=== PATIENT | female | born 1940 | race Caucasian/White ===

== ENCOUNTER 2016-11-03 09:20 | Inpatient (IN) | payer MEDICARE, BC ==
[~2016-11-03] VITALS: Ht 162.6 cm; Wt 58.1 kg
--- NOTE | 2016-11-03 09:52 | PHYS DOC ---
Past Medical History Past Medical History: GERD, Hypertension Past Surgical History: Tonsillectomy, Tubal ligation Additional Information: nonsmoker Alcohol Use: None Drug Use: None Adult General Chief Complaint Chief Complaint: KNEE INJURY HPI HPI Patient is a 76 year old female who presents with right knee pain after tripping and falling at 0745 today. She states that she was in an unfamiliar place and tripped. She landed on her right knee. She denies hitting her head or loss of consciousness. She denies any other injuries. She is ambulatory with a significant limp. Her PCP is Dr. Jose R Riley. Review of Systems Review of Systems Constitutional: Denies fever or chills. [] Musculoskeletal: Denies back pain. Reports right knee pain and swelling. Integument: Denies rash or skin lesions. Reports right knee ecchymosis. Neurologic: Denies headache, focal weakness or sensory changes. Denies loss of consciousness. Current Medications Current Medications Current Medications Medications (Trade) Dose Ordered Sig/Fritz Start Time Stop Time Status Last Admin Dose Admin Morphine Sulfate 4 mg PRN Q15MIN PRN 11/03/16 11:00 11/04/16 10:59 Ondansetron HCl (Zofran) 4 mg PRN Q8HRS PRN 11/03/16 11:00 Allergies Allergies Allergies Coded Allergies Type Severity Reaction Last Updated Verified Sulfa (Sulfonamide Antibiotics) Allergy Mild hives 11/03/16 Yes Physical Exam Physical Exam Constitutional: Well developed, well nourished, no acute distress, non-toxic appearance. [] HENT: Normocephalic, atraumatic, oropharynx moist. [] Eyes: PERRLA, EOMI, conjunctiva normal, no discharge. [] Neck: Normal range of motion, no tenderness, supple, no stridor. [] Skin: Warm, dry, no erythema, no rash. Ecchymosis over the right patella. Back: No midline tenderness, no CVA tenderness. [] Extremities: Right patellar tenderness, ROM decreased due to pain, moderate right patellar edema. Distal pulses equal bilaterally. Neurovascular intact distally. The patient is unable to hold her leg up on the bed, suggesting extensor mechanism involvement. Neurologic: Alert and oriented X 3, normal motor function, normal sensory function, no focal deficits noted. [] Psychologic: Affect normal, judgement normal, mood normal. [] Current Patient Data Vital Signs Vital Signs Date Time Temp Pulse Resp B/P Pulse Ox O2 Delivery O2 Flow Rate FiO2 11/03/16 09:35 97.9 77 18 221/95 98 Room Air 97.9 EKG EKG EKG at 1123. Heart rate 72 bpm. Normal sinus rhythm without any acute ischemic changes or STEMI, as interpreted by Dr. Ribeiro. Radiology/Procedures Radiology/Procedures REASON: trip & fall on knee, patellar tenderness and edema,fall this am per pt. PROCEDURE: KNEE RIGHT 4V 4 view study of the right knee History: Patient fell on right knee this a.m. Pain and swelling and tenderness around the patella. Findings: There is a comminuted fracture of the mid and lower pole of the right patella. There is intra-articular extension. There is inferior distraction of the lower fracture fragment of 6 mm. The patella is normally aligned otherwise. Associated prepatellar soft tissue swelling and posttraumatic bursitis is seen. Swelling of the suprapatellar bursa is seen consistent with a joint effusion. No osteolytic process is seen. IMPRESSION: Post traumatic comminuted fracture of the right patella. Course & Med Decision Making Course & Med Decision Making Pertinent Labs and Imaging studies reviewed. (See chart for details) Patient is a 76-year-old female who presents with mechanical fall onto her right knee. On exam, there is significant edema and ecchymosis over the right patella. She is unable to lift her leg to gravity. I spoke with Dr. Luna with orthopedics. Because the patient has extensor mechanism involvement, she will need to be admitted to the hospital for surgery. I discussed the results with the patient and her . They are in agreement with plan for admission to the hospital. The patient was admitted under the hospitalist service by Dr. Dejesus. Preop labs, EKG, and x-ray were ordered while the patient was in the emergency department. The patient remained stable in the emergency department. Dragon Disclaimer Dragon Disclaimer This electronic medical record was generated, in whole or in part, using a voice recognition dictation system. Departure Departure Impression: Primary Impression: Patella fracture Disposition: ADMITTED INPATIENT Admitting Physician: Ulises Dejesus Condition: STABLE Problem Qualifiers Primary Impression: Patella fracture Encounter type: initial encounter Fracture type: closed Fracture morphology : comminuted Fracture alignment: nondisplaced Laterality: right Qualified Code: S82.044A - Nondisplaced comminuted fracture of right patella, initial encounter for closed fracture SEDRICK AGUILAR Nov 03, 2016 09:52
--- NOTE | 2016-11-03 10:32 | RAD ---
4 view study of the right knee History: Patient fell on right knee this a.m. Pain and swelling and tenderness around the patella. Findings: There is a comminuted fracture of the mid and lower pole of the right patella. There is intra-articular extension. There is inferior distraction of the lower fracture fragment of 6 mm. The patella is normally aligned otherwise. Associated prepatellar soft tissue swelling and posttraumatic bursitis is seen. Swelling of the suprapatellar bursa is seen consistent with a joint effusion. No osteolytic process is seen. IMPRESSION: Post traumatic comminuted fracture of the right patella.
[2016-11-03] MEDS ORDERED: MORPHINE SULFATE 4 MG/ML DISP.SYRIN. IV/SQ PRN (11:00)
[2016-11-03] MEDS ORDERED: ONDANSETRON PF 4 MG/2 ML VIAL. IV PRN ×2 (11:00→11:15)
[2016-11-03] MEDS: IV NORMAL SALINE 1000ML BAG 1,000 ML IV SCH ×2 (11:10→21:27)
--- NOTE | 2016-11-03 11:13 | RAD ---
Portable AP upright view CXR: Clinical indications: Preoperative study. The patient is 76 years old. Comparison: None available. Findings: No acute lung infiltrate or pleural effusion or pulmonary edema or lung mass or pneumothorax is seen. The heart size, pulmonary vasculature, mediastinum and both roger are unremarkable. Impression: No acute radiographic abnormality is seen.
[2016-11-03] MEDS ORDERED: MORPHINE SULFATE 4 MG/ML DISP.SYRIN. IV PRN (11:15)
[2016-11-03] MEDS ORDERED: LOSA100T6 PO (12:43)
[2016-11-03] MEDS ORDERED: RANI150T6 PO (12:43)
--- NOTE | 2016-11-03 14:12 | EKG ---
[facility] [address] [place] [address] Test Date: 2016-11-03 Test Time: 11:23:15 Pat Name: BARB GARCIA Department: Room: [facility] Gender: F Anesthesiology Crna: : 1940 Requested By: SEDRICK AGUILAR Order Number: [id number] Reading MD: Kvng Dao Measurements Intervals [place] Rate: 72 P: 69 MN: 196 QRS: 6 QRSD: 86 T: 72 QT: 392 QTc: 431 Interpretive Statements SINUS RHYTHM Electronically Signed On 11-16-2016 11:56:06 CDT by Kvng Dao
[2016-11-03 15:00] VITALS: BP 141/66
[2016-11-03] MEDS: LOSARTAN POTASSIUM 50 MG TABLET. PO SCH (15:00)
[2016-11-03 15:12] LABS: BASO % 0 % (0-3); EOS % 0 % (0-3); HEMATOCRIT 41.4 % (36.0-47.0); HEMOGLOBIN 13.5 g/dL (12.0-15.5); LYMPH # 0.7 x10^3/uL (1.0-4.8); LYMPH % 9 % (24-48); MEAN CORPUSCULAR HEMOGLOBIN 30 pg (25-35); MEAN CORPUSCULAR HGB CONC 33 g/dL (31-37); MEAN CORPUSCULAR VOLUME 93 fL (79-100); MONO % 3 % (0-9); NEUT % 88 % (31-73); PLATELET COUNT 215 x10^3/uL (140-400); RED BLOOD COUNT 4.46 x10^6/uL (3.50-5.40); RED CELL DISTRIBUTION WIDTH 13.9 % (11.5-14.5)
[2016-11-03 15:21] LABS: PROTHROMBIN TIME PATIENT 12.1 SEC (11.7-14.0)
[2016-11-03 15:30] LABS: CALCIUM 9.3 mg/dL (8.5-10.1); CREATININE 0.9 mg/dL (0.6-1.0); POTASSIUM 3.9 mmol/L (3.5-5.1)
[2016-11-03 15:36] LABS: ALBUMIN/GLOBULIN RATIO 1.1 (1.0-1.7); TOTAL BILIRUBIN 0.5 mg/dL (0.2-1.0); TOTAL PROTEIN 7.5 g/dL (6.4-8.2)
--- NOTE | 2016-11-03 15:37 | HP ---
ADMIT DATE: 11/03/2016 CHIEF COMPLAINT: Fall with right knee pain. HISTORY OF PRESENT ILLNESS: The patient is a pleasant elderly female, who fell. She suffered with right knee pain. She presented to the ER for evaluation. She rates it at 05/03. They did some imaging. She has got a comminuted fracture of the patella. I discussed the case with the ER physician. She is going to meet Orthopedics consultation, pain meds and probable shelter. PAST MEDICAL HISTORY: GERD, hypertension, tonsillectomy, and tubal ligation. ALLERGIES: SULFA. FAMILY HISTORY: Coronary artery disease. SOCIAL HISTORY: She does not drink, smoke or take drugs. MEDICATIONS: Reviewed, please refer to the MAR. REVIEW OF SYSTEMS: GENERAL: No history of weight change, weakness or fevers. SKIN: No bruising, hair changes or rashes. EYES: No blurred, double or loss of vision. NOSE AND THROAT: No history of nosebleeds, hoarseness or sore throat. HEART: No history of palpitations, chest pain or shortness of breath on exertion. LUNGS: Denies cough, hemoptysis, wheezing or shortness of breath. GASTROINTESTINAL: Denies changes in appetite, nausea, vomiting, diarrhea or constipation. GENITOURINARY: No history of frequency, urgency, hesitancy or nocturia. NEUROLOGIC: Denies history of numbness, tingling, tremor or weakness. PSYCHIATRIC: No history of panic, anxiety or depression. ENDOCRINE: No history of heat or cold intolerance, polyuria or polydipsia. EXTREMITIES: The patient complains of right knee pain. PHYSICAL EXAMINATION: VITAL SIGNS: Temperature afebrile, pulse 74, respirations 18, and blood pressure ____. GENERAL: She is alert, cooperative, and complaining of pain. HEART: Normal S1, S2. LUNGS: Clear. ABDOMEN: Soft, positive bowel sounds. EXTREMITIES: Right knee is swollen and bruised. ENDOCRINE: No thyromegaly. LYMPHATICS: No cervical nodes. HEMATOPOIETIC: No bruising. LABORATORY DATA: Laboratory is pending. ASSESSMENT AND PLAN: Fall with right comminuted knee fracture. The patient is being admitted. We will consult Orthopedics, physical therapy, occupational therapy, shelter evaluation, p.r.n. narcotics, IV fluids, and continue home medicines. GORDY FLORES DO DR: Theresa JOB#: [id number] / [id number]
[2016-11-03 16:38] LABS: PLT ESTIMATE ADEQUATE (ADEQUATE)
--- NOTE | 2016-11-03 17:45 | ACF ---
Admission Forms Criteria MUSCULOSKELETAL DISEASE GRG Clinical Indications for Admission to Inpatient Care (Place 'X' for any and all applicable criteria): Hospital admission is needed for appropriate care of the patient because of 1 or more of the following: [X]I. Fracture, dislocation, or other musculoskeletal injury requiring inpatient care(medical) as indicated by 1 or more of the following(4)(5)(6)(7) [ ]a) Vertebral fracture requiring observation for instability or neurologic compromise (8) [ ]b) Compartment syndrome (proven or cannot be ruled out during observation level of care) (9) [ ]c) Limb-threatening injury [ ]d) Major injury requiring inpatient stabilization such as traction initiation or external fixation before internal fixation or closure of complex or open fracture [X]e) Major injury requiring inpatient treatment after emergency or observation level care (as appropriate) [X]f) Severe pain requiring acute inpatient management [ ]g) Injury with suspicion of abuse or neglect (eg., child, dependent elderly) [ ]II. Newly diagnosed or suspected bone, joint, or orthopedic device infection (e.g., osteomyelitis, septic arthritis) needing 1 or more of the following(1)(2)(3) [ ]a) IV antibiotics that cannot be initiated in other than inpatient setting (e.g., patient too unstable or home infusion not available) [ ]b) Device removal or replacement [ ]c) Bone or soft tissue debridement [ ]d) Joint drainage (drain placement or repetitive aspirations) [ ]III. Severe rheumatologic disease (e.g., systemic lupus erythematosus, rheumatoid arthritis) with complications or comorbidities (Also use Optimal Recovery Care Criteria or General Recovery Criteria as appropriate on the basis of predominant condition), including 1 or more of the following( 10)(11)(12)(13) [ ]a) Severe infection (e.g., MEMBERSHIP ADVISOR infection, sepsis) (14) [ ]b) Respiratory complications, including 1 or more of the following : [ ]i) Pleural effusion with respiratory compromise [ ]ii) Pulmonary hypertension with congestive failure [ ]iii) Respiratory failure [ ]iv) Pulmonary hemorrhage (15) [ ]c) Hematologic disease, including 1 or more of the following: [ ]i) Coagulopathy with bleeding [ ]ii) Thrombosis with hypercoagulable state [ ]iii) Thrombotic thrombocytopenic purpura [ ]d) Cerebritis with seizures, psychosis, or other severe abnormalities [ ]e) Vertebral destruction with monitoring needed for cervical myelopathy& possible respiratory compromise [ ]f) Exacerbation that requires inpatient treatment (e.g., intravenous immunosuppression) (16) [ ]g) Acute renal failure [ ]h) Cerebritis with seizures, psychosis, Altered mental status, or other neurologic abnormalities [ ]i) Pericardial effusion with tamponade [ ]j) Vertebral destruction, with monitoring needed for cervical myelopathy and possible respiratory compromise [ ]IV. Severe vasculitis with complications or comorbidities (Also use Optimal Recovery Care Criteria General Recovery Criteria as appropriate on the basis of predominant condition), including 1 or more of the following(11)(12)(17)(18)(19)(20) [ ]a) Exacerbation that requires inpatient treatment (e.g., intravenous immunosuppression) (19)(21) [ ]b) Pulmonary hemorrhage (15) [ ]c) MEMBERSHIP ADVISOR vasculitis with seizures, psychosis, Altered mental status that is severe or persistent, or other severe abnormalities (22) [ ]d) Cerebral infarction [ ]e) Gastrointestinal ischemia [ ]f) Gangrene or threatened amputation [ ]g) Renal failure (16) [ ]h) Other significant complications of vasculitis ( eg., tissue or organ ischemia, organ dysfunction ) [ ]V. Severe myopathy as indicated by 1 or more of the following (28)(29) [ ]a) New onset of airway compromise or inability to swallow [ ]b) Respiratory deterioration with observation needed for impending respiratory failure [ ]c) Exacerbation that requires inpatient treatment (e.g., intravenous immunosuppression) [ ]. Severe crystal gout (arthropathy) indicated by 1 or more of the following (23)(24) [ ]a) Severe pain requiring acute inpatient management [ ]b) Exacerbation that requires inpatient treatment (e.g., intravenous treatment) [ ]VII.Rhabdomyolysis and 1 or more of the following (25)(26)(27) [ ]a) Acute renal failure [ ]b) Need for intravenous hydration after emergency or observation level care (as appropriate) [ ]c) Inability to maintain oral hydration [ ]d) Change in mental status [ ]e) Electrolyte abnormality that remains after emergency or observation level care (as appropriate) [ ]VIII Post amputation complication, as indicated by ANY ONE of the following [ ]a) Infection [ ]b) Dehiscence [ ]c) Myodesis failure [ ]IX. Severe pain requiring acute inpatient management due to musculoskeletal condition [ ]X. Musculoskeletal Disease and ALL of the following: [ ]a) Symptom or finding for which emergency and observation care have failed or are not considered appropriate (Use General Criteria: Observation Care as appropriate) [ ]b) Presence of ANY ONE of the following [ ]i) A General Admission Criteria [ ]ii) A Pediatric General Admission Criteria The original [facility] [employer] content created by [facility] [employer] has been revised. The portions of the content which have been revised are identified through the use of italic text or in bold, and [facility] has neither reviewed nor approved the modified material. All other unmodified content is copyright [facility]. Please see references footnoted in the original [facility] edition 2016 Admission Criteria Met?: Yes DANA VÁSQUEZ Nov 03, 2016 17:45
[2016-11-03 19:55] VITALS: BP 177/62
[2016-11-03] MEDS: FAMOTIDINE 20 MG TABLET. PO SCH (21:24)
[2016-11-03 23:20] VITALS: BP 175/65
[2016-11-04] VITALS (10 sets, daily range): BP systolic 140–194; BP diastolic 56–77
[2016-11-04] MEDS: IV NORMAL SALINE 1000ML BAG 1,000 ML IV SCH ×2 (07:10→09:10)
[2016-11-04] MEDS ORDERED: IV RINGERS,LACTATED 1000ML 1,000 ML IV SCH (08:02)
[2016-11-04] MEDS ORDERED: HYDROmorphone 2 MG/ML VIAL IV PRN (08:15)
[2016-11-04] MEDS ORDERED: ONDANSETRON PF 4 MG/2 ML VIAL. IV PRN (08:15)
[2016-11-04] MEDS ORDERED: LIDOCAINE 1% 1 ML SYRINGE. ID PRN (08:15)
[2016-11-04] MEDS ORDERED: FENTANYL PF 100 MCG/2 ML VIAL. IV PRN ×2 (08:15)
[2016-11-04] MEDS ORDERED: PROCHLORPERAZINE 10 MG/2 ML VIAL. IV PRN (08:15)
[2016-11-04] MEDS ORDERED: MORPHINE SULFATE 2 MG/ML DISP.SYRIN. IV PRN (08:15)
[2016-11-04] MEDS: LOSARTAN POTASSIUM 50 MG TABLET. PO SCH (08:39)
[2016-11-04] MEDS: FAMOTIDINE 20 MG TABLET. PO SCH ×2 (08:39→22:13)
--- NOTE | 2016-11-04 11:12 | PDOC2 ---
CONSULT Date of Consult Date of Consult DATE: 11/03/16 TIME: 17:04 Reason for Consult Reason for Consult: right knee pain, patella fracture Identification/Chief Complaint Chief Complaint right knee pain after a fall Source Source: Chart review, Patient History of Present Illness Reason for Visit: The patient is a 76 year old female who fell directly onto her right knee. She had immediate pain and swelling and presented to [facility] ER. She was found to have an inferior pole of the patella fracture. She was unable to lift her leg off the bed, her extensor mechanism is ruptured. Her pain in the knee is severe only when trying to move the leg. no other msk complaints. Past Surgical History Past Surgical History: Tubal Ligation, Tonsillectomy Social History No ALCOHOL: none Drugs: None Lives: with Family Current Problem List Problem List Problems Medical Problems: (1) Patella fracture Status: Acute Current Medications Current Medications Current Medications Morphine Sulfate 4 mg PRN Q15MIN PRN IV/SQ PAIN GREATER THAN 3/10; Start at 11:00; Stop 11/04/16 at 10:59; Status DC Ondansetron HCl (Zofran) 4 mg PRN Q8HRS PRN IV NAUSEA/VOMITING; Start 11/03/16 at 11:00 Ondansetron HCl (Zofran) 4 mg PRN Q8HRS PRN IV NAUSEA/VOMITING; Start 11/03/16 at 11:15; Stop 11/04/16 at 11:14 Morphine Sulfate 4 mg 4 mg PRN Q2HR PRN IV PAIN; Start 11/03/16 at 11:15; Stop 11/04/16 at 11:14 Sodium Chloride (Iv Sodium Chloride 0.9% 1000ml Bag) 1,000 ml @ 100 mls/hr Q10H IV Last administered on 11/04/16 09:10; Start 11/03/16 at 11:10; Stop at 11:09 Losartan Potassium (Cozaar) 100 mg DAILY PO Last administered on 11/04/16 08: 39; Start 11/03/16 at 15:00 Famotidine (Pepcid) 20 mg BID PO Last administered on 11/04/16 08:39; Start at 21:00 Ondansetron HCl (Zofran) 4 mg PRN Q6HRS PRN IV NAUSEA/VOMITING; Start 11/04/16 at 08:15; Stop 11/04/16 at 18:00 Fentanyl Citrate (Fentanyl 2ml Vial) 25 mcg PRN Q5MIN PRN IV MILD PAIN; Start 11/04/16 at 08:15; Stop 11/04/16 at 18:00 Fentanyl Citrate (Fentanyl 2ml Vial) 50 mcg PRN Q5MIN PRN IV MODERATE PAIN; Start 11/04/16 at 08:15; Stop 11/04/16 at 18:00 Morphine Sulfate 1 mg 1 mg PRN Q10MIN PRN IV SEVERE PAIN; Start 11/04/16 at 08: 15; Stop 11/04/16 at 18:00 Lactated Ringer's (Iv Lactated Ringers) 1,000 ml @ 30 mls/hr Q24H IV ; Start at 08:02; Stop 11/04/16 at 20:01 Lidocaine HCl 2 ml PRN 1X PRN ID PRIOR TO IV START; Start 11/04/16 at 08:15; Stop 11/04/16 at 18:00 Hydromorphone HCl (Dilaudid) 0.5 mg PRN Q10MIN PRN IV SEV PAIN, Second choice; Start 11/04/16 at 08:15; Stop 11/04/16 at 18:00 Prochlorperazine Edisylate (Compazine) 5 mg PACU PRN PRN IV NAUSEA, MRX1; Start 11/04/16 at 08:15; Stop 11/04/16 at 18:00 Active Scripts Active Reported Zantac (Ranitidine Hcl) 150 Mg Tablet 1 Tab PO BID Losartan Potassium 100 Mg Tablet 100 Mg PO DAILY Allergies Allergies: Coded Allergies: Sulfa (Sulfonamide Antibiotics) (Verified Allergy, Mild, hives, 11/03/16) ROS General: No: Appetite, Chills, Fatigue, Malaise, Night Sweats, Other Musculoskeletal: Yes Gait Disturbance, Yes Joint Pain, Yes Joint Swelling Physical Exam General: Alert, Oriented X3, Cooperative, No acute distress HEENT: Atraumatic Lungs: Normal air movement Extremities: No clubbing, No cyanosis, No edema Skin: No significant lesion MUSCULOSKELETAL: Abnormal exam of right (right knee flexed to 45 degrees. pain with extension. unable to perform straight leg raise. very swollen anteriorly over the kneecap. palpable defect felt at the inferior pole of the patella. no calf swelling or edema. neurovascularly intact distally. ) Vitals VITALS Vital Signs Date Time Temp Pulse Resp B/P Pulse Ox O2 Delivery O2 Flow Rate FiO2 11/04/16 08:39 67 176/77 11/04/16 07:45 Room Air 11/04/16 07:00 97.9 18 98 97.9 Labs Labs Laboratory Tests Test 11/03/16 15:00 White Blood Count 8.0x10^3/uL (4.0-11.0) Red Blood Count 4.46x10^6/uL (3.50-5.40) Hemoglobin 13.5g/dL (12.0-15.5) Hematocrit 41.4% (36.0-47.0) Mean Corpuscular Volume 93fL (79-100) Mean Corpuscular Hemoglobin 30pg (25-35) Mean Corpuscular Hemoglobin Concent 33g/dL (31-37) Red Cell Distribution Width 13.9% (11.5-14.5) Platelet Count 215x10^3/uL (140-400) Neutrophils (%) (Auto) 88% (31-73) Lymphocytes (%) (Auto) 9% (24-48) Monocytes (%) (Auto) 3% (0-9) Eosinophils (%) (Auto) 0% (0-3) Basophils (%) (Auto) 0% (0-3) Neutrophils # (Auto) 7.1x10^3uL (1.8-7.7) Lymphocytes # (Auto) 0.7x10^3/uL (1.0-4.8) Monocytes # (Auto) 0.2x10^3/uL (0.0-1.1) Eosinophils # (Auto) 0.0x10^3/uL (0.0-0.7) Basophils # (Auto) 0.0x10^3/uL (0.0-0.2) Segmented Neutrophils % 85% (35-66) Band Neutrophils % 2% (0-9) Lymphocytes % 10% (24-48) Monocytes % 3% (0-10) Platelet Estimate Adequate (ADEQUATE) Prothrombin Time 12.1SEC (11.7-14.0) Prothromb Time International Ratio 1.0 (0.8-1.1) Sodium Level 145mmol/L (136-145) Potassium Level 3.9mmol/L (3.5-5.1) Chloride Level 108mmol/L (98-107) Carbon Dioxide Level 31mmol/L (21-32) Anion Gap 6 (6-14) Blood Urea Nitrogen 16mg/dL (7-20) Creatinine 0.9mg/dL (0.6-1.0) Estimated GFR (Cockcroft-Gault) 61.0 BUN/Creatinine Ratio 18 (6-20) Glucose Level 119mg/dL (70-99) Calcium Level 9.3mg/dL (8.5-10.1) Total Bilirubin 0.5mg/dL (0.2-1.0) Aspartate Amino Transf (AST/SGOT) 17U/L (15-37) Alanine Aminotransferase (ALT/SGPT) 21U/L (14-59) Alkaline Phosphatase 84U/L (46-116) Total Protein 7.5g/dL (6.4-8.2) Albumin 4.0g/dL (3.4-5.0) Albumin/Globulin Ratio 1.1 (1.0-1.7) Laboratory Tests Test 11/03/16 15:00 White Blood Count 8.0x10^3/uL (4.0-11.0) Red Blood Count 4.46x10^6/uL (3.50-5.40) Hemoglobin 13.5g/dL (12.0-15.5) Hematocrit 41.4% (36.0-47.0) Mean Corpuscular Volume 93fL (79-100) Mean Corpuscular Hemoglobin 30pg (25-35) Mean Corpuscular Hemoglobin Concent 33g/dL (31-37) Red Cell Distribution Width 13.9% (11.5-14.5) Platelet Count 215x10^3/uL (140-400) Neutrophils (%) (Auto) 88% (31-73) Lymphocytes (%) (Auto) 9% (24-48) Monocytes (%) (Auto) 3% (0-9) Eosinophils (%) (Auto) 0% (0-3) Basophils (%) (Auto) 0% (0-3) Neutrophils # (Auto) 7.1x10^3uL (1.8-7.7) Lymphocytes # (Auto) 0.7x10^3/uL (1.0-4.8) Monocytes # (Auto) 0.2x10^3/uL (0.0-1.1) Eosinophils # (Auto) 0.0x10^3/uL (0.0-0.7) Basophils # (Auto) 0.0x10^3/uL (0.0-0.2) Segmented Neutrophils % 85% (35-66) Band Neutrophils % 2% (0-9) Lymphocytes % 10% (24-48) Monocytes % 3% (0-10) Platelet Estimate Adequate (ADEQUATE) Prothrombin Time 12.1SEC (11.7-14.0) Prothromb Time International Ratio 1.0 (0.8-1.1) Sodium Level 145mmol/L (136-145) Potassium Level 3.9mmol/L (3.5-5.1) Chloride Level 108mmol/L (98-107) Carbon Dioxide Level 31mmol/L (21-32) Anion Gap 6 (6-14) Blood Urea Nitrogen 16mg/dL (7-20) Creatinine 0.9mg/dL (0.6-1.0) Estimated GFR (Cockcroft-Gault) 61.0 BUN/Creatinine Ratio 18 (6-20) Glucose Level 119mg/dL (70-99) Calcium Level 9.3mg/dL (8.5-10.1) Total Bilirubin 0.5mg/dL (0.2-1.0) Aspartate Amino Transf (AST/SGOT) 17U/L (15-37) Alanine Aminotransferase (ALT/SGPT) 21U/L (14-59) Alkaline Phosphatase 84U/L (46-116) Total Protein 7.5g/dL (6.4-8.2) Albumin 4.0g/dL (3.4-5.0) Albumin/Globulin Ratio 1.1 (1.0-1.7) Images Images right knee xrays reveal greater than 2 cm displaced inferior pole of the patella fracture. no other acute fractures or dislocations. Assessment/Plan Assessment/Plan The patient is a 76 year old female who fell sustaining a right patella fracture. 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 I talked to her about the risks and benefits of nonoperative versus operative treatment. She would like to proceed with operative treatment. NPO at midnight pain control dvt prophylaxis HORACIO SANTOS MD Nov 04, 2016 11:12
[2016-11-04] MEDS ORDERED: LABETALOL 20 MG/4 ML DISP.SYRIN. IVP PRN (11:45)
[2016-11-04] MEDS ORDERED: CEFAZOLIN 2GM PREMIX 50 ML IV ONE (12:59)
[2016-11-04] MEDS ORDERED: MIDAZOLAM HCL/PF 2 MG/2 ML VIAL. ONE (14:11)
[2016-11-04] MEDS ORDERED: FAMOTIDINE 20 MG/2 ML VIAL ONE (14:14)
[2016-11-04] MEDS ORDERED: EPHEDRINE PF IN SALINE 50 MG/5 ML DISP.SYRIN. IV ONE (14:26)
[2016-11-04] MEDS ORDERED: DEXAMETHASONE SOD PHOS 20 MG/5 ML VIAL. ONE (14:38)
[2016-11-04] MEDS ORDERED: ONDANSETRON PF 4 MG/2 ML VIAL. ONE (14:38)
[2016-11-04] MEDS ORDERED: LIDOCAINE 2% 100 MG/5 ML SYRINGE. ONE (14:38)
[2016-11-04] MEDS ORDERED: SEVOFLURANE 61 TO 120 MINUTES. IH ONE ×2 (14:38→15:32)
[2016-11-04] MEDS ORDERED: PROPOFOL 20 ML IV ONE (14:38)
--- NOTE | 2016-11-04 14:49 | PDOC ---
PROGRESS NOTES Chief Complaint Chief Complaint Traumatic R knee ASSESSMENT AND PLAN: 1. R patellar fx: unable to extend LE. surgical repair today by Dr Luna Vitals Vitals Vital Signs Date Time Temp Pulse Resp B/P Pulse Ox O2 Delivery O2 Flow Rate FiO2 11/04/16 12:48 98.5 70 12 179/79 98 Room Air 98.5 Physical Exam General: Alert, Oriented X3, Cooperative, No acute distress Heart: Regular rate Lungs: Clear Extremities: No edema Skin: No significant lesion Labs LABS Laboratory Tests Test 11/03/16 15:00 White Blood Count 8.0x10^3/uL (4.0-11.0) Red Blood Count 4.46x10^6/uL (3.50-5.40) Hemoglobin 13.5g/dL (12.0-15.5) Hematocrit 41.4% (36.0-47.0) Mean Corpuscular Volume 93fL (79-100) Mean Corpuscular Hemoglobin 30pg (25-35) Mean Corpuscular Hemoglobin Concent 33g/dL (31-37) Red Cell Distribution Width 13.9% (11.5-14.5) Platelet Count 215x10^3/uL (140-400) Neutrophils (%) (Auto) 88% (31-73) Lymphocytes (%) (Auto) 9% (24-48) Monocytes (%) (Auto) 3% (0-9) Eosinophils (%) (Auto) 0% (0-3) Basophils (%) (Auto) 0% (0-3) Neutrophils # (Auto) 7.1x10^3uL (1.8-7.7) Lymphocytes # (Auto) 0.7x10^3/uL (1.0-4.8) Monocytes # (Auto) 0.2x10^3/uL (0.0-1.1) Eosinophils # (Auto) 0.0x10^3/uL (0.0-0.7) Basophils # (Auto) 0.0x10^3/uL (0.0-0.2) Segmented Neutrophils % 85% (35-66) Band Neutrophils % 2% (0-9) Lymphocytes % 10% (24-48) Monocytes % 3% (0-10) Platelet Estimate Adequate (ADEQUATE) Prothrombin Time 12.1SEC (11.7-14.0) Prothromb Time International Ratio 1.0 (0.8-1.1) Sodium Level 145mmol/L (136-145) Potassium Level 3.9mmol/L (3.5-5.1) Chloride Level 108mmol/L (98-107) Carbon Dioxide Level 31mmol/L (21-32) Anion Gap 6 (6-14) Blood Urea Nitrogen 16mg/dL (7-20) Creatinine 0.9mg/dL (0.6-1.0) Estimated GFR (Cockcroft-Gault) 61.0 BUN/Creatinine Ratio 18 (6-20) Glucose Level 119mg/dL (70-99) Calcium Level 9.3mg/dL (8.5-10.1) Total Bilirubin 0.5mg/dL (0.2-1.0) Aspartate Amino Transf (AST/SGOT) 17U/L (15-37) Alanine Aminotransferase (ALT/SGPT) 21U/L (14-59) Alkaline Phosphatase 84U/L (46-116) Total Protein 7.5g/dL (6.4-8.2) Albumin 4.0g/dL (3.4-5.0) Albumin/Globulin Ratio 1.1 (1.0-1.7) Review of Systems Review of Systems pain mostly controlled. no N/V, SOB SHEY COUCH MD Nov 04, 2016 14:49
[2016-11-04] MEDS ORDERED: BUPIVACAINE-EPI 0.25%-1:200000 MPF 30 ML VIAL. ONE (15:19)
[2016-11-04] MEDS ORDERED: FENTANYL PF 100 MCG/2 ML VIAL. ONE (15:32)
[2016-11-04] MEDS ORDERED: CEFAZOLIN SODIUM 1 GM in IV NORMAL SALINE 50ML 50 ML IV SCH (16:00)
--- NOTE | 2016-11-04 16:02 | PDOC ---
BRIEF OPERATIVE NOTE Date: Nov 04, 2016 Pre-Op Diagnosis right patella fracture Post-Op Diagnosis right patella fracture Procedure Performed partial patellectomy with tendon advancement and repair Surgeon Horacio Santos MD Tangled Yarn Spool Straightener none Blood Loss minimal Specimens Obtained inferior patella pole, anterior knee bursae Findings Chronic inflammatory looking tisue encountered. Fracture did not appear completely acute. Patellar tendon was very poor quality. retinaculum was intact for the most part. Complications none Additional Remarks knee flexion to 100 without compromising repair during surgery. HORACIO SANTOS MD Nov 04, 2016 16:02
[2016-11-04] MEDS ORDERED: ALBUTEROL SULFATE 2.5 MG/3 ML NEBU. NEB PRN (17:00)
[2016-11-04] MEDS: CEFAZOLIN SODIUM 1 GM in IV NORMAL SALINE 50ML 50 ML IV SCH (22:00)
[2016-11-05 02:36] VITALS: BP 141/69
[2016-11-05] MEDS: TRAMADOL 50 MG TABLET. PO PRN ×3 (03:26→21:43)
[2016-11-05] MEDS: CEFAZOLIN SODIUM 1 GM in IV NORMAL SALINE 50ML 50 ML IV SCH ×2 (05:57→14:16)
[2016-11-05 07:00] VITALS: BP 148/74
[2016-11-05] MEDS: LOSARTAN POTASSIUM 50 MG TABLET. PO SCH (08:36)
[2016-11-05] MEDS: FAMOTIDINE 20 MG TABLET. PO SCH ×2 (08:36→21:39)
[2016-11-05 11:00] VITALS: BP 143/61
--- NOTE | 2016-11-05 12:46 | PDOC ---
PROGRESS NOTES Chief Complaint Chief Complaint cc: R knee s/p mechanical fall R patellar fracture s/p partial patellectomy with tendon advancement and repair (4) GERD HTN History of Present Illness History of Present Illness Patient seen and evaluated at bedside. POD #1 s/p partial patellectomy with tendon advancement and repair, per Dr. Luna. Patient is up and standing with veterinary assistant technician by PT. (+) R knee brace. Pain managed with medications. No new complaints at this time. Eager to go home. d/w physical therapy and nurse. Vitals Vitals Vital Signs Date Time Temp Pulse Resp B/P Pulse Ox O2 Delivery O2 Flow Rate FiO2 11/05/16 11:00 97.8 72 20 143/61 93 Room Air 97.8 11/04/16 16:12 10 Physical Exam General: Alert, Oriented X3, Cooperative, No acute distress Heart: Regular rate, Normal S1 Lungs: Clear, Other (negative chest retractions. ) Abdomen: Soft, No tenderness Extremities: No clubbing, No cyanosis, No edema, Other (R knee brace in place. up with assistance. Lower extremities neurovascularly intact bilaterally. ) Skin: No rashes, No significant lesion Review of Systems Review of Systems (+) r knee pain Denies chest pain, sob, abdominal pain, n/v/d, fever/chills, or numbness/ tingling. Assessment and Plan Assessmemt and Plan Problems Medical Problems: (1) Patella fracture Status: Acute Assessment: 1.) R patellar fx, s/p partial patellectomy with tendon advancement and repair POD#1 2.) GERD 3.) HTN Plan: 1.) continue home medications 2.) PT/OT 3.) appreciate subspecialty input 4.) disposition to home vs. rehab if agreeable with subspecialty 5.) activity and diet as tolerated. Problems: Comment Review of Relevant I have reviewed the following items garry (where applicable) has been applied. Labs Laboratory Tests Test 11/03/16 15:00 White Blood Count 8.0x10^3/uL (4.0-11.0) Red Blood Count 4.46x10^6/uL (3.50-5.40) Hemoglobin 13.5g/dL (12.0-15.5) Hematocrit 41.4% (36.0-47.0) Mean Corpuscular Volume 93fL (79-100) Mean Corpuscular Hemoglobin 30pg (25-35) Mean Corpuscular Hemoglobin Concent 33g/dL (31-37) Red Cell Distribution Width 13.9% (11.5-14.5) Platelet Count 215x10^3/uL (140-400) Neutrophils (%) (Auto) 88% (31-73) Lymphocytes (%) (Auto) 9% (24-48) Monocytes (%) (Auto) 3% (0-9) Eosinophils (%) (Auto) 0% (0-3) Basophils (%) (Auto) 0% (0-3) Neutrophils # (Auto) 7.1x10^3uL (1.8-7.7) Lymphocytes # (Auto) 0.7x10^3/uL (1.0-4.8) Monocytes # (Auto) 0.2x10^3/uL (0.0-1.1) Eosinophils # (Auto) 0.0x10^3/uL (0.0-0.7) Basophils # (Auto) 0.0x10^3/uL (0.0-0.2) Segmented Neutrophils % 85% (35-66) Band Neutrophils % 2% (0-9) Lymphocytes % 10% (24-48) Monocytes % 3% (0-10) Platelet Estimate Adequate (ADEQUATE) Prothrombin Time 12.1SEC (11.7-14.0) Prothromb Time International Ratio 1.0 (0.8-1.1) Sodium Level 145mmol/L (136-145) Potassium Level 3.9mmol/L (3.5-5.1) Chloride Level 108mmol/L (98-107) Carbon Dioxide Level 31mmol/L (21-32) Anion Gap 6 (6-14) Blood Urea Nitrogen 16mg/dL (7-20) Creatinine 0.9mg/dL (0.6-1.0) Estimated GFR (Cockcroft-Gault) 61.0 BUN/Creatinine Ratio 18 (6-20) Glucose Level 119mg/dL (70-99) Calcium Level 9.3mg/dL (8.5-10.1) Total Bilirubin 0.5mg/dL (0.2-1.0) Aspartate Amino Transf (AST/SGOT) 17U/L (15-37) Alanine Aminotransferase (ALT/SGPT) 21U/L (14-59) Alkaline Phosphatase 84U/L (46-116) Total Protein 7.5g/dL (6.4-8.2) Albumin 4.0g/dL (3.4-5.0) Albumin/Globulin Ratio 1.1 (1.0-1.7) Medications Current Medications Morphine Sulfate 4 mg PRN Q15MIN PRN IV/SQ PAIN GREATER THAN 3/10; Start at 11:00; Stop 11/04/16 at 10:59; Status DC Ondansetron HCl (Zofran) 4 mg PRN Q8HRS PRN IV NAUSEA/VOMITING; Start 11/03/16 at 11:00 Ondansetron HCl (Zofran) 4 mg PRN Q8HRS PRN IV NAUSEA/VOMITING; Start 11/03/16 at 11:15; Stop 11/04/16 at 11:14; Status DC Morphine Sulfate 4 mg 4 mg PRN Q2HR PRN IV PAIN; Start 11/03/16 at 11:15; Stop 11/04/16 at 11:14; Status DC Sodium Chloride (Iv Sodium Chloride 0.9% 1000ml Bag) 1,000 ml @ 100 mls/hr Q10H IV Last administered on 11/04/16 09:10; Start 11/03/16 at 11:10; Stop at 11:09; Status DC Losartan Potassium (Cozaar) 100 mg DAILY PO Last administered on 11/05/16 08: 36; Start 11/03/16 at 15:00 Famotidine (Pepcid) 20 mg BID PO Last administered on 11/05/16 08:36; Start at 21:00 Ondansetron HCl (Zofran) 4 mg PRN Q6HRS PRN IV NAUSEA/VOMITING; Start 11/04/16 at 08:15; Stop 11/04/16 at 18:00; Status DC Fentanyl Citrate (Fentanyl 2ml Vial) 25 mcg PRN Q5MIN PRN IV MILD PAIN; Start 11/04/16 at 08:15; Stop 11/04/16 at 18:00; Status DC Fentanyl Citrate (Fentanyl 2ml Vial) 50 mcg PRN Q5MIN PRN IV MODERATE PAIN; Start 11/04/16 at 08:15; Stop 11/04/16 at 18:00; Status DC Morphine Sulfate 1 mg 1 mg PRN Q10MIN PRN IV SEVERE PAIN; Start 11/04/16 at 08: 15; Stop 11/04/16 at 18:00; Status DC Lactated Ringer's (Iv Lactated Ringers) 1,000 ml @ 30 mls/hr Q24H IV Last administered on 11/04/16 12:45; Start 11/04/16 at 08:02; Stop 11/04/16 at 20:01 ; Status DC Lidocaine HCl 2 ml PRN 1X PRN ID PRIOR TO IV START; Start 11/04/16 at 08:15; Stop 11/04/16 at 18:00; Status DC Hydromorphone HCl (Dilaudid) 0.5 mg PRN Q10MIN PRN IV SEV PAIN, Second choice; Start 11/04/16 at 08:15; Stop 11/04/16 at 18:00; Status DC Prochlorperazine Edisylate (Compazine) 5 mg PACU PRN PRN IV NAUSEA, MRX1; Start 11/04/16 at 08:15; Stop 11/04/16 at 18:00; Status DC Labetalol HCl 20 mg 20 mg PRN Q8HRS PRN IVP HYPERTENSION, SEE COMMENTS Last administered on 11/04/16 11:59; Start 11/04/16 at 11:45 Cefazolin Sodium/ Dextrose (Ancef 2gm Premix) 50 ml @ As Directed STK-MED ONCE IV ; Start 11/04/16 at 12:59; Stop 11/04/16 at 13:00; Status DC Midazolam HCl (Versed) 2 mg STK-MED ONCE .ROUTE ; Start 11/04/16 at 14:11; Stop 11/04/16 at 14:12; Status DC Famotidine (Pepcid) 20 mg STK-MED ONCE .ROUTE ; Start 11/04/16 at 14:14; Stop at 14:15; Status DC Ephedrine Sulfate 50 mg STK-MED ONCE IV ; Start 11/04/16 at 14:26; Stop at 14:27; Status DC Sevoflurane 60 ml 60 ml STK-MED ONCE IH ; Start 11/04/16 at 14:38; Stop at 14:39; Status DC Propofol (Diprivan) 20 ml @ As Directed STK-MED ONCE IV ; Start 11/04/16 at 14: 38; Stop 11/04/16 at 14:39; Status DC Lidocaine HCl (Lidocaine HCl 2% Abboject) 100 mg STK-MED ONCE .ROUTE ; Start at 14:38; Stop 11/04/16 at 14:39; Status DC Dexamethasone Sodium Phosphate (Decadron) 20 mg STK-MED ONCE .ROUTE ; Start at 14:38; Stop 11/04/16 at 14:39; Status DC Ondansetron HCl (Zofran) 4 mg STK-MED ONCE .ROUTE ; Start 11/04/16 at 14:38; Stop 11/04/16 at 14:39; Status DC Bupivacaine HCl/ Epinephrine Bitart (Sensorcaine-Epi 0.25%-1:133788 Mpf) 30 ml STK-MED ONCE .ROUTE Last administered on 11/04/16 14:37; Start 11/04/16 at 15: 19; Stop 11/04/16 at 15:20; Status DC Sevoflurane (Ultane) 60 ml STK-MED ONCE IH ; Start 11/04/16 at 15:32; Stop 11/04 at 15:33; Status DC Fentanyl Citrate 100 mcg 100 mcg STK-MED ONCE .ROUTE ; Start 11/04/16 at 15:32; Stop 11/04/16 at 15:33; Status DC Cefazolin Sodium/ Sodium Chloride (Ancef/Iv Sodium Chloride 0.9% 50ml) 50 ml @ 100 mls/hr Q8HRS IV ; Start 11/04/16 at 16:00; Stop 11/04/16 at 17:12; Status DC Tramadol HCl (Ultram) 50 mg PRN Q6HRS PRN PO PAIN Last administered on 08:36; Start 11/04/16 at 16:00 Albuterol Sulfate 2.5 mg 2.5 mg 1X PACU PRN NEB SHORTNESS OF BREATH Last administered on 11/04/16 16:53; Start 11/04/16 at 17:00 Cefazolin Sodium/ Sodium Chloride (Ancef/Iv Sodium Chloride 0.9% 50ml) 50 ml @ 100 mls/hr Q8H IV Last administered on 11/05/16t 05:57; Start 11/04/16 at 22:00 ; Stop 11/05/16 at 14:29 Active Scripts Active Reported Zantac (Ranitidine Hcl) 150 Mg Tablet 1 Tab PO BID Losartan Potassium 100 Mg Tablet 100 Mg PO DAILY Vitals/I & O Vital Sign - Last 24 Hours 11/04/16 11/04/16 11/04/16 11/04/16 12:48 15:57 15:57 16:12 Temp 98.5 98.0 98.5 98.0 Pulse 70 73 74 Resp 12 16 16 B/P 179/79 141/61 167/75 Pulse Ox 98 99 100 O2 Delivery Room Air Mask Simple Mask Simple Mask O2 Flow Rate 10 10 10 11/04/16 11/04/16 11/04/16 11/04/16 16:27 16:42 16:53 16:57 Temp 97.3 97.3 Pulse 76 76 74 Resp 16 18 16 B/P 169/70 173/90 172/75 Pulse Ox 99 97 100 O2 Delivery Room Air Room Air Room Air Room Air 11/04/16 11/04/16 11/04/16 11/04/16 17:25 17:40 17:55 18:10 Temp 97.9 97.8 97.9 97.8 Pulse 67 77 70 78 Resp 20 20 20 20 B/P 159/67 153/59 148/61 140/64 Pulse Ox 97 96 96 96 O2 Delivery Room Air Room Air Room Air Room Air 11/04/16 11/04/16 11/04/16 11/04/16 18:40 19:30 19:40 21:00 Temp 97.9 97.8 97.9 97.8 Pulse 81 78 Resp 20 18 B/P 142/57 145/67 Pulse Ox 97 96 98 O2 Delivery Room Air Room Air Room Air Room Air 11/04/16 11/05/16 11/05/16 11/05/16 23:36 02:36 03:26 04:26 Temp 98.4 98.1 98.4 98.1 Pulse 78 86 Resp 18 18 18 18 B/P 145/56 141/69 Pulse Ox 98 97 O2 Delivery Room Air Room Air Room Air 11/05/16 11/05/16 11/05/16 11/05/16 07:00 07:35 08:36 08:36 Temp 98.6 98.6 Pulse 75 75 Resp 16 B/P 148/74 148/74 Pulse Ox 95 O2 Delivery Room Air Room Air Room Air 11/05/16 11/05/16 09:40 11:00 Temp 97.8 97.8 Pulse 72 Resp 20 B/P 143/61 Pulse Ox 93 O2 Delivery Room Air Room Air Intake and Output 11/04/16 11/04/16 11/05/16 14:59 22:59 06:59 Intake Total 50 ml 1040 ml 660 ml Output Total 20 ml Balance 50 ml 1020 ml 660 ml GORDY FLORES III DO Nov 05, 2016 12:45
[2016-11-05 15:00] VITALS: BP 136/64
[2016-11-05 19:15] VITALS: BP 142/73
--- NOTE | 2016-11-05 20:12 | PDOC ---
PROGRESS NOTES Subjective Subjective Problems overnight: no acute issues. felt dizzy the first time she got up today but feels much better now. Pain is much improved than prior to surgery. no history of chronic or previous injury Objective Vital Signs Vital Signs Date Time Temp Pulse Resp B/P Pulse Ox O2 Delivery O2 Flow Rate FiO2 11/05/16 15:00 98.1 83 20 136/64 97 Room Air 98.1 11/04/16 16:12 10 Physical Exam RLE in knee immobilizer and dressing, cdi. HV to suction. nvi distally. no calf pain or swelling. Assessment Assessment POD# 1, S/P Right partial patellectomy and patellar tendon repair Problems: (1) Patella fracture Plan Plan of Care currently doing well. has not worked with pt yet. ok to be wbat in extension in the brace. will dc hv and dressing tomorrow am. can go home whenever she is cleared by pt dvt ppx bowel regimen pain control Problem Qualifiers (1) Patella fracture: Encounter type: initial encounter Fracture type: closed Fracture morphology : comminuted Fracture alignment: nondisplaced Laterality: right Qualified Code: S82.044A - Nondisplaced comminuted fracture of right patella, initial encounter for closed fracture HORACIO SANTOS MD Nov 05, 2016 20:12
[2016-11-05] MEDS: HEPARIN PF for SUB-Q USE 5,000 UNIT/0.5 ML VIAL. SQ SCH (21:44)
[2016-11-05 23:00] VITALS: BP 162/70
[2016-11-06 03:18] VITALS: BP 156/70
[2016-11-06 05:16] LABS: BASO % 0 % (0-3); EOS % 0 % (0-3); HEMATOCRIT 35.6 % (36.0-47.0); HEMOGLOBIN 11.6 g/dL (12.0-15.5); LYMPH # 1.1 x10^3/uL (1.0-4.8); LYMPH % 12 % (24-48); MEAN CORPUSCULAR HEMOGLOBIN 31 pg (25-35); MEAN CORPUSCULAR HGB CONC 33 g/dL (31-37); MEAN CORPUSCULAR VOLUME 94 fL (79-100); MONO % 11 % (0-9); NEUT % 76 % (31-73); PLATELET COUNT 158 x10^3/uL (140-400); RED CELL DISTRIBUTION WIDTH 13.9 % (11.5-14.5); WHITE BLOOD COUNT 9.3 x10^3/uL (4.0-11.0)
[2016-11-06 05:28] LABS: CALCIUM 8.2 mg/dL (8.5-10.1); CREATININE 0.8 mg/dL (0.6-1.0); GFR 69.9; POTASSIUM 3.7 mmol/L (3.5-5.1)
[2016-11-06] MEDS: HEPARIN PF for SUB-Q USE 5,000 UNIT/0.5 ML VIAL. SQ SCH ×2 (05:47→13:41)
[2016-11-06 07:00] VITALS: BP 160/71
--- NOTE | 2016-11-06 07:48 | PDOC ---
ORTHO PROGRESS NOTES Subjective Pain well controlled on oral pain meds. working well with pt. minimal output from HV overnight. Post-op Day: 2 (s/p orif right patella fracture) Vitals Vital Signs Date Time Temp Pulse Resp B/P Pulse Ox O2 Delivery O2 Flow Rate FiO2 11/06/16 03:18 98.5 80 18 156/70 97 Room Air 98.5 Labs Laboratory Tests Test 11/06/16 04:50 White Blood Count 9.3x10^3/uL (4.0-11.0) Red Blood Count 3.80x10^6/uL (3.50-5.40) Hemoglobin 11.6g/dL (12.0-15.5) Hematocrit 35.6% (36.0-47.0) Mean Corpuscular Volume 94fL (79-100) Mean Corpuscular Hemoglobin 31pg (25-35) Mean Corpuscular Hemoglobin Concent 33g/dL (31-37) Red Cell Distribution Width 13.9% (11.5-14.5) Platelet Count 158x10^3/uL (140-400) Neutrophils (%) (Auto) 76% (31-73) Lymphocytes (%) (Auto) 12% (24-48) Monocytes (%) (Auto) 11% (0-9) Eosinophils (%) (Auto) 0% (0-3) Basophils (%) (Auto) 0% (0-3) Neutrophils # (Auto) 7.1x10^3uL (1.8-7.7) Lymphocytes # (Auto) 1.1x10^3/uL (1.0-4.8) Monocytes # (Auto) 1.0x10^3/uL (0.0-1.1) Eosinophils # (Auto) 0.0x10^3/uL (0.0-0.7) Basophils # (Auto) 0.0x10^3/uL (0.0-0.2) Sodium Level 142mmol/L (136-145) Potassium Level 3.7mmol/L (3.5-5.1) Chloride Level 104mmol/L (98-107) Carbon Dioxide Level 29mmol/L (21-32) Anion Gap 9 (6-14) Blood Urea Nitrogen 18mg/dL (7-20) Creatinine 0.8mg/dL (0.6-1.0) Estimated GFR (Cockcroft-Gault) 69.9 Glucose Level 116mg/dL (70-99) Calcium Level 8.2mg/dL (8.5-10.1) Laboratory Tests Test 11/06/16 04:50 White Blood Count 9.3x10^3/uL (4.0-11.0) Red Blood Count 3.80x10^6/uL (3.50-5.40) Hemoglobin 11.6g/dL (12.0-15.5) Hematocrit 35.6% (36.0-47.0) Mean Corpuscular Volume 94fL (79-100) Mean Corpuscular Hemoglobin 31pg (25-35) Mean Corpuscular Hemoglobin Concent 33g/dL (31-37) Red Cell Distribution Width 13.9% (11.5-14.5) Platelet Count 158x10^3/uL (140-400) Neutrophils (%) (Auto) 76% (31-73) Lymphocytes (%) (Auto) 12% (24-48) Monocytes (%) (Auto) 11% (0-9) Eosinophils (%) (Auto) 0% (0-3) Basophils (%) (Auto) 0% (0-3) Neutrophils # (Auto) 7.1x10^3uL (1.8-7.7) Lymphocytes # (Auto) 1.1x10^3/uL (1.0-4.8) Monocytes # (Auto) 1.0x10^3/uL (0.0-1.1) Eosinophils # (Auto) 0.0x10^3/uL (0.0-0.7) Basophils # (Auto) 0.0x10^3/uL (0.0-0.2) Sodium Level 142mmol/L (136-145) Potassium Level 3.7mmol/L (3.5-5.1) Chloride Level 104mmol/L (98-107) Carbon Dioxide Level 29mmol/L (21-32) Anion Gap 9 (6-14) Blood Urea Nitrogen 18mg/dL (7-20) Creatinine 0.8mg/dL (0.6-1.0) Estimated GFR (Cockcroft-Gault) 69.9 Glucose Level 116mg/dL (70-99) Calcium Level 8.2mg/dL (8.5-10.1) Notes RLE incision cdi with judy in place, hv in place to suction, removed with tip intact. minimal distal edema into the foot and ankle. no calf pain or swelling. nvi distally. Problems: (1) Patella fracture Assessment and Plan POD 2 s/p ORIF Right patella fracture. changed the patient's dressing, dc'd the drain, tip intact. aquacel dressing to remain intact until I see her in the office. she is wbat , in the knee immobilizer continue to ice and elevate. she will need dvt ppx for home, daily asa 325 mg EC I have given her pain medications for discharge. she can see me in the office on 11/16 or 11/17 call [phone] to schedule the appt ok to dc today from ortho standpoint. Problem Qualifiers (1) Patella fracture: Encounter type: initial encounter Fracture type: closed Fracture morphology : comminuted Fracture alignment: nondisplaced Laterality: right Qualified Code: S82.044A - Nondisplaced comminuted fracture of right patella, initial encounter for closed fracture HORACIO SANTOS MD Nov 06, 2016 07:48
[2016-11-06] MEDS: FAMOTIDINE 20 MG TABLET. PO SCH (08:57)
[2016-11-06] MEDS: LOSARTAN POTASSIUM 50 MG TABLET. PO SCH (08:58)
[2016-11-06 11:00] VITALS: BP 138/58
--- NOTE | 2016-11-06 15:06 | PDOC ---
PROGRESS NOTES Chief Complaint Chief Complaint cc: R knee s/p mechanical fall R patellar fracture s/p partial patellectomy with tendon advancement and repair (11/04) GERD HTN History of Present Illness History of Present Illness Patient seen and evaluated at bedside. POD #2 s/p partial patellectomy with tendon advancement and repair, per Dr. Luna. Patient states her pain is well controlled. (+) R knee brace. . No new complaints at this time. Eager to go home. d/w nurse. Vitals Vitals Vital Signs Date Time Temp Pulse Resp B/P Pulse Ox O2 Delivery O2 Flow Rate FiO2 11/06/16 11:00 99.1 85 20 138/58 98 Room Air 99.1 Physical Exam General: Alert, Oriented X3, Cooperative, No acute distress Heart: Regular rate, Normal S1 Lungs: Clear, Other (negative chest retractions. ) Abdomen: Soft, No tenderness Extremities: No clubbing, No cyanosis, No edema, Other (R knee brace in place. up with assistance. Lower extremities neurovascularly intact bilaterally. ) Skin: No rashes, No significant lesion Labs LABS Laboratory Tests Test 11/06/16 04:50 White Blood Count 9.3x10^3/uL (4.0-11.0) Red Blood Count 3.80x10^6/uL (3.50-5.40) Hemoglobin 11.6g/dL (12.0-15.5) Hematocrit 35.6% (36.0-47.0) Mean Corpuscular Volume 94fL (79-100) Mean Corpuscular Hemoglobin 31pg (25-35) Mean Corpuscular Hemoglobin Concent 33g/dL (31-37) Red Cell Distribution Width 13.9% (11.5-14.5) Platelet Count 158x10^3/uL (140-400) Neutrophils (%) (Auto) 76% (31-73) Lymphocytes (%) (Auto) 12% (24-48) Monocytes (%) (Auto) 11% (0-9) Eosinophils (%) (Auto) 0% (0-3) Basophils (%) (Auto) 0% (0-3) Neutrophils # (Auto) 7.1x10^3uL (1.8-7.7) Lymphocytes # (Auto) 1.1x10^3/uL (1.0-4.8) Monocytes # (Auto) 1.0x10^3/uL (0.0-1.1) Eosinophils # (Auto) 0.0x10^3/uL (0.0-0.7) Basophils # (Auto) 0.0x10^3/uL (0.0-0.2) Sodium Level 142mmol/L (136-145) Potassium Level 3.7mmol/L (3.5-5.1) Chloride Level 104mmol/L (98-107) Carbon Dioxide Level 29mmol/L (21-32) Anion Gap 9 (6-14) Blood Urea Nitrogen 18mg/dL (7-20) Creatinine 0.8mg/dL (0.6-1.0) Estimated GFR (Cockcroft-Gault) 69.9 Glucose Level 116mg/dL (70-99) Calcium Level 8.2mg/dL (8.5-10.1) Review of Systems Review of Systems (+) right knee pain Assessment and Plan Assessmemt and Plan Problems Medical Problems: (1) Patella fracture Status: Acute Assessment: 1.) R patellar fx, s/p partial patellectomy with tendon advancement and repair POD#2 2.) GERD 3.) HTN Plan: 1.) continue home medications 2.) PT/OT 3.) appreciate subspecialty input 4.) daily 325mg asa for dvt ppx 5.) discharge to home. instructed to f/u with Dr. Luna in 1-2 weeks; rx for pain medications per ortho 6.) activity and diet as tolerated. Problems: Comment Review of Relevant I have reviewed the following items garry (where applicable) has been applied. Labs Laboratory Tests Test 11/06/16 04:50 White Blood Count 9.3x10^3/uL (4.0-11.0) Red Blood Count 3.80x10^6/uL (3.50-5.40) Hemoglobin 11.6g/dL (12.0-15.5) Hematocrit 35.6% (36.0-47.0) Mean Corpuscular Volume 94fL (79-100) Mean Corpuscular Hemoglobin 31pg (25-35) Mean Corpuscular Hemoglobin Concent 33g/dL (31-37) Red Cell Distribution Width 13.9% (11.5-14.5) Platelet Count 158x10^3/uL (140-400) Neutrophils (%) (Auto) 76% (31-73) Lymphocytes (%) (Auto) 12% (24-48) Monocytes (%) (Auto) 11% (0-9) Eosinophils (%) (Auto) 0% (0-3) Basophils (%) (Auto) 0% (0-3) Neutrophils # (Auto) 7.1x10^3uL (1.8-7.7) Lymphocytes # (Auto) 1.1x10^3/uL (1.0-4.8) Monocytes # (Auto) 1.0x10^3/uL (0.0-1.1) Eosinophils # (Auto) 0.0x10^3/uL (0.0-0.7) Basophils # (Auto) 0.0x10^3/uL (0.0-0.2) Sodium Level 142mmol/L (136-145) Potassium Level 3.7mmol/L (3.5-5.1) Chloride Level 104mmol/L (98-107) Carbon Dioxide Level 29mmol/L (21-32) Anion Gap 9 (6-14) Blood Urea Nitrogen 18mg/dL (7-20) Creatinine 0.8mg/dL (0.6-1.0) Estimated GFR (Cockcroft-Gault) 69.9 Glucose Level 116mg/dL (70-99) Calcium Level 8.2mg/dL (8.5-10.1) Laboratory Tests Test 11/06/16 04:50 White Blood Count 9.3x10^3/uL (4.0-11.0) Red Blood Count 3.80x10^6/uL (3.50-5.40) Hemoglobin 11.6g/dL (12.0-15.5) Hematocrit 35.6% (36.0-47.0) Mean Corpuscular Volume 94fL (79-100) Mean Corpuscular Hemoglobin 31pg (25-35) Mean Corpuscular Hemoglobin Concent 33g/dL (31-37) Red Cell Distribution Width 13.9% (11.5-14.5) Platelet Count 158x10^3/uL (140-400) Neutrophils (%) (Auto) 76% (31-73) Lymphocytes (%) (Auto) 12% (24-48) Monocytes (%) (Auto) 11% (0-9) Eosinophils (%) (Auto) 0% (0-3) Basophils (%) (Auto) 0% (0-3) Neutrophils # (Auto) 7.1x10^3uL (1.8-7.7) Lymphocytes # (Auto) 1.1x10^3/uL (1.0-4.8) Monocytes # (Auto) 1.0x10^3/uL (0.0-1.1) Eosinophils # (Auto) 0.0x10^3/uL (0.0-0.7) Basophils # (Auto) 0.0x10^3/uL (0.0-0.2) Sodium Level 142mmol/L (136-145) Potassium Level 3.7mmol/L (3.5-5.1) Chloride Level 104mmol/L (98-107) Carbon Dioxide Level 29mmol/L (21-32) Anion Gap 9 (6-14) Blood Urea Nitrogen 18mg/dL (7-20) Creatinine 0.8mg/dL (0.6-1.0) Estimated GFR (Cockcroft-Gault) 69.9 Glucose Level 116mg/dL (70-99) Calcium Level 8.2mg/dL (8.5-10.1) Medications Current Medications Morphine Sulfate 4 mg PRN Q15MIN PRN IV/SQ PAIN GREATER THAN 3/10; Start at 11:00; Stop 11/04/16 at 10:59; Status DC Ondansetron HCl (Zofran) 4 mg PRN Q8HRS PRN IV NAUSEA/VOMITING; Start 11/03/16 at 11:00; Stop 11/06/16 at 14:23; Status DC Ondansetron HCl (Zofran) 4 mg PRN Q8HRS PRN IV NAUSEA/VOMITING; Start 11/03/16 at 11:15; Stop 11/04/16 at 11:14; Status DC Morphine Sulfate 4 mg 4 mg PRN Q2HR PRN IV PAIN; Start 11/03/16 at 11:15; Stop 11/04/16 at 11:14; Status DC Sodium Chloride (Iv Sodium Chloride 0.9% 1000ml Bag) 1,000 ml @ 100 mls/hr Q10H IV Last administered on 11/04/16 09:10; Start 11/03/16 at 11:10; Stop at 11:09; Status DC Losartan Potassium (Cozaar) 100 mg DAILY PO Last administered on 11/06/16 08: 58; Start 11/03/16 at 15:00; Stop 11/06/16 at 14:23; Status DC Famotidine (Pepcid) 20 mg BID PO Last administered on 11/06/16 08:57; Start at 21:00; Stop 11/06/16 at 14:23; Status DC Ondansetron HCl (Zofran) 4 mg PRN Q6HRS PRN IV NAUSEA/VOMITING; Start 11/04/16 at 08:15; Stop 11/04/16 at 18:00; Status DC Fentanyl Citrate (Fentanyl 2ml Vial) 25 mcg PRN Q5MIN PRN IV MILD PAIN; Start 11/04/16 at 08:15; Stop 11/04/16 at 18:00; Status DC Fentanyl Citrate (Fentanyl 2ml Vial) 50 mcg PRN Q5MIN PRN IV MODERATE PAIN; Start 11/04/16 at 08:15; Stop 11/04/16 at 18:00; Status DC Morphine Sulfate 1 mg 1 mg PRN Q10MIN PRN IV SEVERE PAIN; Start 11/04/16 at 08: 15; Stop 11/04/16 at 18:00; Status DC Lactated Ringer's (Iv Lactated Ringers) 1,000 ml @ 30 mls/hr Q24H IV Last administered on 11/04/16 12:45; Start 11/04/16 at 08:02; Stop 11/04/16 at 20:01 ; Status DC Lidocaine HCl 2 ml PRN 1X PRN ID PRIOR TO IV START; Start 11/04/16 at 08:15; Stop 11/04/16 at 18:00; Status DC Hydromorphone HCl (Dilaudid) 0.5 mg PRN Q10MIN PRN IV SEV PAIN, Second choice; Start 11/04/16 at 08:15; Stop 11/04/16 at 18:00; Status DC Prochlorperazine Edisylate (Compazine) 5 mg PACU PRN PRN IV NAUSEA, MRX1; Start 11/04/16 at 08:15; Stop 11/04/16 at 18:00; Status DC Labetalol HCl 20 mg 20 mg PRN Q8HRS PRN IVP HYPERTENSION, SEE COMMENTS Last administered on 11/04/16t 11:59; Start 11/04/16 at 11:45; Stop 11/06/16 at 14:23 ; Status DC Cefazolin Sodium/ Dextrose (Ancef 2gm Premix) 50 ml @ As Directed STK-MED ONCE IV ; Start 11/04/16 at 12:59; Stop 11/04/16 at 13:00; Status DC Midazolam HCl (Versed) 2 mg STK-MED ONCE .ROUTE ; Start 11/04/16 at 14:11; Stop 11/04/16 at 14:12; Status DC Famotidine (Pepcid) 20 mg STK-MED ONCE .ROUTE ; Start 11/04/16 at 14:14; Stop at 14:15; Status DC Ephedrine Sulfate 50 mg STK-MED ONCE IV ; Start 11/04/16 at 14:26; Stop at 14:27; Status DC Sevoflurane 60 ml 60 ml STK-MED ONCE IH ; Start 11/04/16 at 14:38; Stop at 14:39; Status DC Propofol (Diprivan) 20 ml @ As Directed STK-MED ONCE IV ; Start 11/04/16 at 14: 38; Stop 11/04/16 at 14:39; Status DC Lidocaine HCl (Lidocaine HCl 2% Abboject) 100 mg STK-MED ONCE .ROUTE ; Start at 14:38; Stop 11/04/16 at 14:39; Status DC Dexamethasone Sodium Phosphate (Decadron) 20 mg STK-MED ONCE .ROUTE ; Start at 14:38; Stop 11/04/16 at 14:39; Status DC Ondansetron HCl (Zofran) 4 mg STK-MED ONCE .ROUTE ; Start 11/04/16 at 14:38; Stop 11/04/16 at 14:39; Status DC Bupivacaine HCl/ Epinephrine Bitart (Sensorcaine-Epi 0.25%-1:297187 Mpf) 30 ml STK-MED ONCE .ROUTE Last administered on 11/04/16 14:37; Start 11/04/16 at 15: 19; Stop 11/04/16 at 15:20; Status DC Sevoflurane (Ultane) 60 ml STK-MED ONCE IH ; Start 11/04/16 at 15:32; Stop 11/04 at 15:33; Status DC Fentanyl Citrate 100 mcg 100 mcg STK-MED ONCE .ROUTE ; Start 11/04/16 at 15:32; Stop 11/04/16 at 15:33; Status DC Cefazolin Sodium/ Sodium Chloride (Ancef/Iv Sodium Chloride 0.9% 50ml) 50 ml @ 100 mls/hr Q8HRS IV ; Start 11/04/16 at 16:00; Stop 11/04/16 at 17:12; Status DC Tramadol HCl (Ultram) 50 mg PRN Q6HRS PRN PO PAIN Last administered on 21:43; Start 11/04/16 at 16:00; Stop 11/06/16 at 14:23; Status DC Albuterol Sulfate 2.5 mg 2.5 mg 1X PACU PRN NEB SHORTNESS OF BREATH Last administered on 11/04/16 16:53; Start 11/04/16 at 17:00; Stop 11/06/16 at 14:23 ; Status DC Cefazolin Sodium/ Sodium Chloride (Ancef/Iv Sodium Chloride 0.9% 50ml) 50 ml @ 100 mls/hr Q8H IV Last administered on 11/05/16 14:16; Start 11/04/16 at 22:00 ; Stop 11/05/16 at 14:29; Status DC Heparin Sodium (Porcine) 5,000 unit Q8HRS SQ Last administered on 11/06/16 13: 41; Start 11/05/16 at 21:00; Stop 11/06/16 at 14:23; Status DC Active Scripts Active Reported Zantac (Ranitidine Hcl) 150 Mg Tablet 1 Tab PO BID Losartan Potassium 100 Mg Tablet 100 Mg PO DAILY Vitals/I & O Vital Sign - Last 24 Hours 11/05/16 11/05/16 11/05/16 11/05/16 19:15 20:10 21:43 23:00 Temp 98.0 99.4 98.0 99.4 Pulse 83 85 Resp 18 18 B/P 142/73 162/70 Pulse Ox 96 96 O2 Delivery Room Air Room Air Room Air Room Air 11/06/16 11/06/16 11/06/16 11/06/16 00:00 03:18 07:00 07:43 Temp 98.5 99.0 98.5 99.0 Pulse 80 85 Resp 18 20 B/P 156/70 160/71 Pulse Ox 97 96 O2 Delivery Room Air Room Air Room Air Room Air 11/06/16 11/06/16 08:58 11:00 Temp 99.1 99.1 Pulse 85 85 Resp 20 B/P 160/71 138/58 Pulse Ox 98 O2 Delivery Room Air Intake and Output 11/05/16 11/05/16 11/06/16 15:00 23:00 07:00 Intake Total 120 ml 480 ml Output Total 35 ml Balance 120 ml 445 ml GORDY FLORES III DO Nov 06, 2016 15:06
--- NOTE | 2016-11-07 21:31 | PDOC4 ---
Operative Note Operative Note DATE OF OPERATION: 11/04/2016 PREOPERATIVE DIAGNOSIS: Right patellar fracture POSTOPERATIVE DIAGNOSIS: Right inferior pole patellar fracture, S82.091A OPERATION PERFORMED: Open treatment of patellar fracture, with internal fixation and/or partial or complete patellectomy and soft tissue repair, CPT 81616 SURGEON: Horacio Santos MD ANESTHESIA: General. ESTIMATED BLOOD LOSS: 100 cc. TOURNIQUET TIME: 60 minutes. Surgical Indication: The patient is a 76 year old female who fell from a standing height directly onto her patella sustaining a right inferior pole fracture. Her extensor mechanism was incompetent. Non-operative versus operative treatment was discussed with the patient and her . They elected to proceed with operative fixation after the risks and benefits were described. DESCRIPTION OF OPERATION: ~The patient was seen in the preoperative holding area where the right lower extremity was marked as the correct site per the preoperative protocol. A timeout was performed. The patient received IV Ancef for antibiotic prophylaxis. She underwent general anesthesia per the anesthesia service without complications. The right lower extremity was prepped and draped in the usual sterile fashion. The leg was exsanguinated and tourniquet was inflated to 250 mmHg. A midline incision was made centered over the inferior patella and extending to the tibial tubercle. Sharp dissection was performed down through the skin and subcutaneous tissues. Full thickness skin flaps were raised. There was not much hematoma present, and there was a lot of white fibrous scar tissue over the retinaculum. The bone of her patella was very crumbly in nature and the fracture appeared subacute.There was noted to be a minimally intra-articular fracture of the inferior pole of the patella. There was extension to both the medial as well as the lateral retinacula. The inferior pole piece was too small for any fixation so the decision was made to excise the comminuted inferior pole of the patella and reapproximate the patellar tendon via intraosseous tunnels. The inferior pole of the remaining patella was then prepared using rongeur and a curette. Two #2 Fiberwire sutures were used to run a total of 4 strands of suture coming out proximally in a krackow running locking-type stitch. There was excellent tension taken up in the sutures with no gapping noted.~ A 2.5 mm drill bit was used to make 3 parallel holes through the patella, with each strand of the suture was passed through its respective hole using a suture passer. Hemostats were then placed and the repair was found to be without undue stress to about 100 degrees of knee flexion. The knee was then extended and the Fiberwire sutures were tied. It should be noted that there was excellent stability of the patella within the trochlea without subluxation noted. The repair was reinforced with #0 Vicryl as well as the retinacular extension both medial and lateral. Subcutaneous tissues were closed with 3-0 monocryl followed by judy for the skin. A sterile dressing Octavio wrap, and knee immobilizer were applied. The tourniquet was deflated after 60 minutes. The patient was then awakened in the operating room, extubated and transferred to the PACU in stable condition. HORACIO SANTOS MD Nov 07, 2016 21:31
--- NOTE | 2016-11-08 03:27 | DS ---
DATE OF DISCHARGE: 11/06/2016 ADMISSION DIAGNOSES: Fall with comminuted patellar fracture. DISCHARGE DIAGNOSIS: Postoperative open reduction and internal fixation with comminuted patellar fracture. HOSPITAL COURSE: The patient is a pleasant 76-year-old female presented with comminuted patellar fracture after a fall. She was admitted. We consulted orthopedics. She was taken to surgery for surgical correction. Postoperatively, she did well. We discharged to home. DISPOSITION: Home. ACTIVITY: As tolerated. DIET: Low sodium. MEDICATIONS: Please see the MRAD. TOTAL TIME: 32 minutes. GORDY FLORES DO DR: AYESHA/caitlyn JOB#: [id number] / [id number]
--- NOTE | 2016-11-10 08:19 | PATHOLOGY ---
PATHOLOGY REPORT * * * * * * * * FINAL DIAGNOSIS: A. Segment of bone and articular cartilage, inferior patella: - Focal fragmentation of bony trabeculae and recent intertrabecular hemorrhage consistent with fracture. - Degenerative arthritis, mild. B. Segment of fibromembranous and fibroadipose tissue, anterior knee bursa: - Focal edema, fibrosis, recent hemorrhage, and foreign body giant cell reaction. COMMENT: There is no evidence of malignancy. (JPM:mgr; d/t: 11/09/16) REPORT ELECTRONICALLY SIGNED BY: Baltazar Lagunas M.D. DATE/TIME: 11/10/2016 08:19 * * * * * * * * GROSS PATHOLOGY: A. The specimen is received in formalin labeled "Barb Garcia, inferior patella". Received is a segment of light archer to hemorrhagic-appearing bone displaying smooth articular surfaces measuring 2.5 x 2.2 x 1.2 cm in greatest dimensions. The specimen is submitted representatively in cassettes A1 and A2, following decalcification. B. The specimen is received in formalin labeled "Barb Garcia, anterior knee bursa". Received are multiple segments of pale archer fibromembranous tissue with attached yellow-archer lobulated tissue measuring 4.8 x 3.9 x 1.5 cm in aggregate dimensions. The specimen is submitted representatively in cassette B1. (CAA; 11/08/2016) INITIAL CPT CODE(S): A; 62681 B; 51355, 93533 Professional services performed by [facility] [place] [address] Technical services performed by [facility] at [address] [place] [address], [address], [place] [address]. SPECIMEN(S) RECEIVED: A.Inferior patella B.Anterior knee bursa CLINICAL HISTORY: Fractured right patella PATIENT: BARB GARCIA /AGE: 10 1940 (Age: 76) PATIENT #: [id number] ALT CASE #: SPECIMEN COLLECTION DATE: 11/04/2016 SPECIMEN RECEIVED DATE: 11/05/2016 [facility] - [address] [place] [address] - PHONE: [phone] * * * END OF REPORT * * *
== END 2016-11-06 14:23 | disposition home or self-care (01) | DRG 489 ==
LOC: ER 09:20 → 4 NORTH 11:09
PROVIDERS: ADMIT Internal Medicine; ATTEND Internal Medicine
PROC: 0LMQ0ZZ Reattachment of Right Knee Tendon, Open Approach (ICD-10-PCS; 2016-11-04)
PROC: 0QBD0ZZ Excision of Right Patella, Open Approach (ICD-10-PCS; principal; 2016-11-04 13:30)
DX: S82.041A Displaced comminuted fracture of right patella, initial encounter for closed fracture (principal); I10 Essential (primary) hypertension; K21.9 Gastro-esophageal reflux disease without esophagitis; W01.0XXA Fall on same level from slipping, tripping and stumbling without subsequent striking against object, initial encounter; Z82.49 Family history of ischemic heart disease and other diseases of the circulatory system; Z88.2 Allergy status to sulfonamides; Z91.011 Allergy to milk products; Z98.51 Tubal ligation status; Y93.89 Activity, other specified; Y92.89 Other specified places as the place of occurrence of the external cause; Y99.8 Other external cause status; D63.8 Anemia in other chronic diseases classified elsewhere
CPT/HCPCS: 36415; 71010; 73564; 80048; 80053; 85007; 85027; 85610; 88304; 88311; 93005; 94250; J0690; J1100; J2250; J2405; J2704; J3010; J3490; J7030; J7120; S0028; 97116; 97530; 97535; 99285-25